=== PATIENT | female | born 1950 | race Caucasian/White ===

== ENCOUNTER → 2016-06-26 | Day surgery (SDC) | payer MEDICARE ==
[~2016-06-26] MED LIST: BUPIVACAINE HCL PF 0.75% 30 ML VIAL ONE; LACTATED RINGER'S 1000 ML INJ 1,000 ML ONE; LIDOCAINE 1.5%/EPINEPHrine 1:200,000 PF SOLN 30 ML AMP ONE; MIDAZOLAM HCL 5 MG/ML VIAL (1 ML) ONE; PROPOFOL 200 MG/20 ML AMP IV ONE; ceFAZolin 2 GM PREMIX 50 ML ONE
--- NOTE | 2016-06-27 00:03 | MP ---
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 PROCEDURES PERFORMED Modified lapidis first metatarsal medial cuneiform fusion and partial Lisfranc's fusion, second metatarsal second cuneiform fusion, third metatarsal third cuneiform fusion. SURGEON: Rene Aiken DPM SPECIMEN None ESTIMATED BLOOD LOSS Less than 100 mL MATERIALS USED [employer] cannulated screws x3 and x2 [employer] 15 millimeter margarito. ANESTHESIA General with popliteal block. TOURNIQUET TIME 134 minutes at a setting of 215 mmHg. PLAN OF ACTIVITY: PACU, then DC home once stable per Same-Day Surgery criteria. PROCEDURE IN DETAIL After receiving a popliteal block in the pre-anesthesia area, the patient was then brought to the operating room. She was then transferred to the operating table. She was then intubated, sedated without any difficulty. The left lower extremity was then scrubbed, prepped and draped in the usual aseptic fashion. The foot was elevated, exsanguinated and the previously placed mid calf tourniquet was inflated 215 mmHg. An incision was made over the dorsal aspect of the first MPJ with a slight curvilinear at the level of the first metatarsal medial cuneiform joint. Sharp and blunt dissection was carried down to the first MPJ, L-shaped capsulotomy performed laterally revealing prominent dorsomedial eminence, with minimal arthritic findings. McGlamry elevator introduced deep into the first MPJ freeing up plantar and lateral sesamoidal adhesions. Next sharp and blunt dissection was carried down to the base of the first metatarsal medial cuneiform joint utilizing a combination of curette and osteotome mallet and power instrumentation. The articular surface of the first metatarsal base and the head of the medial cuneiform was removed and prepared for fusion. Subchondral drilling and osteotome mallet fish scaling technique took place. Next an incision was made over the dorsal aspect of the third metatarsal base. Sharp and blunt dissection was carried down to the extensor tendons being careful not to violate any neurovascular structures. The extensor digitorum brevis was identified. A subperiosteal dissection took place revealing prominent arthritic findings at the base of the second metatarsal and the third metatarsal. Sharp and blunt dissection verified significant arthritic findings. Utilizing power instrumentation the articular surface was removed and the cartilage was free from the infusion site. Utilizing a combination of osteotome mallet and solid core drilling technique, the third metatarsal third cuneiform and the second metatarsal second cuneiform was repaired for fusion. Next two screws were then placed in dorsal distal to plantar proximal medial of the first metatarsal base medial cuneiform and from dorsal proximal to distal lateral. This compressed at the first metatarsal medial cuneiform joint. AO technique used. Next two temporary stabilization wires were then placed through the bases of the third, fourth metatarsal loading the forefoot evoking the wind last mechanism aligning the joints compressed in prep for fusion. Next utilizing 5 cc of DBX putty bone matrix then infiltrated into the fusion site of the Lisfranc's joint and the lateral aspect of the first metatarsal medial cuneiform base joint fusion. Next two staplers were then deployed, one in the second metatarsal base second cuneiform and one on the third metatarsal base third cuneiform. There was noted to be active compression and no gapping of the arthrodesis site. The final screw was then placed from the medial aspect of the medial first metatarsal coursing into the lateral aspect of the second metatarsal, further stabilizing the fixation construct. X-rays were used to visualize the screws. They were of adequate length. There was no gapping of the arthrodesis site. The tourniquet was then relieved. Deep periosteal closure took place utilizing Vicryl, deep dermis was closed utilizing Monocryl. Skin was closed utilizing nylon. There was a prompt hyperemic response to all digits, noted delayed capillary fill time. A bulky bandage placed. The patient transferred from OR to PACU with all vital signs stable. She was positioned in a Mcdonald compressive dressing and a posterior splint. She will follow up within 3-5 days. She will remain strict non-weightbearing. She will ice and elevate. DEEJAY Rhodes/SAHRA /4:35 PM /11:50 PM MTDJanuary
== END | disposition home or self-care (01) ==
LOC: ESDC 11:20
PROVIDERS: ATTEND Podiatrist Foot & Ankle Surgery
DX: M19.071 Primary osteoarthritis, right ankle and foot (principal); M25.571 Pain in right ankle and joints of right foot
CPT/HCPCS: 01480; 28297; 28730; 64450; 73630; 76000; C1713; J0690; J2250; J7120